=== PATIENT | female | born 1995 | race Caucasian/White ===

== ENCOUNTER → 2016-10-12 | Outpatient (CLI) | payer OTHER ==
[~2016-10-12] MED LIST: PNV OR
== END ==
LOC: M LAB 07:52
PROVIDERS: ATTEND Advanced Practice Midwife
DX: Z34.83 Encounter for supervision of other normal pregnancy, third trimester (principal)

== ENCOUNTER 2016-11-09 09:33 | Outpatient (CLI) | payer OTHER ==
[~2016-11-09] VITALS: Ht 162.6 cm; Wt 84.0 kg
[2016-11-09 09:54] VITALS: BP 127/68
[2016-11-09] MEDS ORDERED: ACETAMINOPHEN 500 MG TAB PO ONE (11:00)
[2016-11-09] MEDS ORDERED: ACETAMINOPHEN 500 MG TAB As Ordered ONE (11:04)
== END 2016-11-09 11:10 | disposition home or self-care (01) ==
LOC: M LDO 09:33
PROVIDERS: ATTEND Specialist
DX: O99.89 Other specified diseases and conditions complicating pregnancy, childbirth and the puerperium (principal); K42.9 Umbilical hernia without obstruction or gangrene; Z3A.30 30 weeks gestation of pregnancy

== ENCOUNTER → 2016-12-25 | Outpatient (REF) | payer OTHER ==
[~2016-12-25] MED LIST changes: +ERYTOIN8 OD; +PREN1TAB11 PO
== END ==
LOC: M LAB REF 13:16
PROVIDERS: ATTEND Advanced Practice Midwife
DX: Z36 Encounter for antenatal screening of mother (principal); Z3A.00 Weeks of gestation of pregnancy not specified

== ENCOUNTER 2016-12-26 05:04 | Emergency (ER) | payer OTHER ==
[~2016-12-26] VITALS: Ht 162.6 cm; Wt 87.5 kg
[~2016-12-26 05:04] MED LIST changes: -ERYTOIN8 OD; -PREN1TAB11 PO
[2016-12-26] MEDS ORDERED: PREN1TAB11 PO (05:28)
[2016-12-26] MEDS ORDERED: TETRACAINE 0.5% OPHTH SOLN 4ML OU ONE (07:15)
[2016-12-26] MEDS ORDERED: FLUORESCEIN OPHTH 1 MG STRIP OU ONE (07:15)
[2016-12-26] MEDS ORDERED: ERYTOIN8 OD (07:34)
[2016-12-26 07:41] VITALS: BP 126/78
[2016-12-26] MEDS ORDERED: ERYTHROMYCIN OPHTH OINT OD ONE (07:45)
== END 2016-12-26 07:47 | disposition home or self-care (01) ==
LOC: M ED 05:47
DX: S05.01XA Injury of conjunctiva and corneal abrasion without foreign body, right eye, initial encounter (principal); H11.31 Conjunctival hemorrhage, right eye; W50.0XXA Accidental hit or strike by another person, initial encounter; Y92.099 Unspecified place in other non-institutional residence as the place of occurrence of the external cause; Y93.89 Activity, other specified; Y99.9 Unspecified external cause status

== ENCOUNTER 2017-01-07 20:21 | Outpatient (CLI) | payer OTHER ==
[~2017-01-07] VITALS: Ht 162.6 cm; Wt 89.0 kg
[~2017-01-07 20:21] MED LIST changes: +ERYTOIN8 OD; +PREN1TAB11 PO
[2017-01-07 20:33] VITALS: BP 133/79
[2017-01-07] MEDS ORDERED: PROMETHAZINE INJ 25 MG/ML VIAL (J2550) IV ONE (22:00)
[2017-01-07] MEDS ORDERED: LACTATED RINGER'S 1000 ML IV ONE (22:00)
[2017-01-07] MEDS ORDERED: BUTORPHANOL 2 MG/ML INJ (J0595) IV ONE (22:00)
[2017-01-08 02:07] VITALS: BP 109/53
[2017-01-08 04:54] VITALS: BP 122/56
== END 2017-01-08 05:55 | disposition home or self-care (01) ==
LOC: M LDO 20:21
PROVIDERS: ATTEND Advanced Practice Midwife
DX: O47.1 False labor at or after 37 completed weeks of gestation (principal); Z3A.38 38 weeks gestation of pregnancy

== ENCOUNTER 2017-01-14 22:56 | Inpatient (IN) | payer OTHER ==
[~2017-01-14] VITALS: Ht 162.6 cm; Wt 90.0 kg
[~2017-01-14 22:56] MED LIST changes: +hydrOXYzine 50 MG TAB PO SCH
[2017-01-14] MEDS ORDERED: BUTORPHANOL 2 MG/ML INJ (J0595) IV PRN (23:30)
[2017-01-14] MEDS ORDERED: LACTATED RINGER'S 1000 ML IV STA (23:30)
[2017-01-14] MEDS ORDERED: PROMETHAZINE INJ 25 MG/ML VIAL (J2550) IV PRN (23:30)
[2017-01-14] MEDS ORDERED: miSOPROStol 50 MCG 1/2 TAB (S0191) PO SCH (23:30)
[2017-01-15] VITALS (29 sets, daily range): BP systolic 110–158; BP diastolic 55–87
--- NOTE | 2017-01-15 00:23 | HPE ---
DATE OF ADMISSION: 01/14/2017 A 21-year-old 3, para 1-0-1-1, estimated date of delivery 01/17/2017, here at 39 weeks 4 days with reports of leakage of fluid on and off since 0630 hours this morning. Denies regular contractions or bleeding. Fetus is active. Last normal menstrual period 04/12/2016 for FRANK of 01/17/2017, sonogram at 8 weeks confirmed her date. Anatomy scan within normal limits with the exception of a possible bilobed placenta. Appropriate care. OBSTETRICAL HISTORY: 2008: Elective termination. 2011: Induction of labor at 39 weeks for preeclampsia, normal spontaneous vaginal , viable female, 7 pounds 3 ounces. ALLERGIES: No known drug allergies. MEDICAL-SURGICAL: History of thyroid nodules FAMILY HISTORY: Autism, diabetes, hypertension and depression. SOCIAL HISTORY: Single. Father of the baby and family supportive. Denies tobacco, alcohol, drugs or abuse. OBJECTIVE: Prepregnancy weight 155, total weight gain 44 pounds. A+, antibody negative, rubella immune, VDRL, hepatitis B, hepatitis C, HIV, gonorrhea and Chlamydia all negative. Quad screen within normal limits. 1-hour glucose 133, 3-hour within normal limits 93, 158, 185 and 121. Group B strep is negative. Vital signs are stable. She is in no apparent distress. Heart rate is regular. Respirations are easy. Abdomen is soft, gravid, longitudinal lie. Rare contractions. heart 145, moderate variability and accelerations. Sterile speculum exam: Positive pooling of clear fluid, positive Nitrazine, positive fern. Sterile vaginal exam: 1 cm, 20% effaced, -3, cephalic. ASSESSMENT: Multiparous at 39+ weeks gestation, premature rupture of membranes, category one tracing. PLAN: Admit, cervical ripening. The patient plans epidural. Anticipate normal spontaneous vaginal .
[2017-01-15 00:39] LABS: MEAN CORPUSCULAR HEMOGLOBIN 27.5 pg (27.0-33.0); MEAN CORPUSCULAR HGB CONC 33.7 g/dl (32.0-36.5); MEAN CORPUSCULAR VOLUME 81.4 fl (80.0-96.0); RED CELL DISTRIBUTION WIDTH 16.4 % (11.5-14.5); WHITE BLOOD COUNT 9.1 K/mm3 (4.0-10.0)
[2017-01-15] MEDS ORDERED: FENTANYL 2MCG/ML ROPIVACAINE 0.2% IN 0.9% NACL 200ML IVBAG As Ordered ONE (04:11)
[2017-01-15] MEDS ORDERED: OXYTOCIN DRIP 30 UNITS in APPROPRIATE DILUENT 1 EA IV SCH (10:31)
[2017-01-15] MEDS ORDERED: RHOGAM 300 MCG (1500 IU) INJ (J2790) IM SCH (10:45)
[2017-01-15] MEDS ORDERED: DOCUSATE SODIUM 100 MG CAP PO PRN (10:45)
[2017-01-15] MEDS ORDERED: MOM 30ML SUSPENSION UDC PO PRN (10:45)
[2017-01-15] MEDS ORDERED: MEASLES,MUMPS,RUBELLA VACCINE INJ (MMR-II) (90707) SC SCH (10:45)
[2017-01-15] MEDS ORDERED: ANUSOL HC CREAM 30GM TOP PRN (10:45)
[2017-01-15] MEDS ORDERED: ACETAMINOPHEN 500 MG TAB PO PRN (10:45)
[2017-01-15] MEDS ORDERED: DIBUCAINE 1% OINTMENT 30GM TOP PRN (10:45)
--- NOTE | 2017-01-15 10:56 | DN ---
DATE: 01/15/2017 TIME OF : 10:14 GENDER: Female APGARS: 9 and 9 WEIGHT: 7 pounds and 13 ounces or 3550 grams ANESTHESIA: Epidural. LACERATIONS: None. ESTIMATED BLOOD LOSS: 300 mL. COUNTS: 5 laparotomy sponges accounted for prior to and after delivery. DELIVERY NOTE: On 01/15/2017, at 10:14, Mrs. Huitron is a 21-year-old, 3, now para 2, who had spontaneous vaginal delivery of a live born female , Apgars 9 and 9, weight 7 pounds and 13 ounces or 3550 grams. Head was delivered left occiput anterior (BIMAL) over an intact perineum. There was a nuchal cord which was manually reduced, followed by delivery of anterior and posterior shoulders and corpus. The infant was handed to mom with a good cry. The cord was clamped times two. It was cut by the father of the baby under my direction. Cord blood was then obtained. It was drained and delivered grossly intact. A premixed bag of 500 mL of normal saline with 30 units of Pitocin was then bolused along with uterus massage until the uterus was firm. On inspection, the cervix, vagina and perineum were grossly intact and hemostatic. Mom and baby to recovery in stable condition. The couple has decided to name their daughter, Denisse.
[2017-01-15] MEDS ORDERED: OXYTOCIN INJ 10 UNITS/ML VIAL (J2590) IV STA (11:50)
[2017-01-15] MEDS: IBUPROFEN 800 MG TAB PO PRN ×2 (14:18→20:05)
[2017-01-16 05:40] VITALS: BP 124/63
[2017-01-16] MEDS: PRENATAL VITAMIN TAB PO SCH (09:52)
[2017-01-16] MEDS: IBUPROFEN 800 MG TAB PO PRN (17:49)
[2017-01-16 18:06] VITALS: BP 119/67
[2017-01-17 05:34] VITALS: BP 136/71
[2017-01-17] MEDS ORDERED: ACET50TA PO (09:24)
[2017-01-17] MEDS ORDERED: COLA100C3 PO (09:25)
[2017-01-17] MEDS ORDERED: IBUP-1114 PO (09:25)
[2017-01-17] MEDS ORDERED: MOM30SS PO (09:27)
[2017-01-17] MEDS: PRENATAL VITAMIN TAB PO SCH (09:37)
[2017-01-17] MEDS: IBUPROFEN 800 MG TAB PO PRN (09:37)
== END 2017-01-17 14:00 | disposition home or self-care (01) | DRG 560 ==
LOC: M LDO 22:56 → M LDI 23:29 → M OBS 01-15 17:29
PROVIDERS: ADMIT Advanced Practice Midwife; ATTEND Obstetrics & Gynecology
PROC: 10E0XZZ Delivery of Products of Conception, External Approach (ICD-10-PCS; principal; 2017-01-15)
DX: O42.02 Full-term premature rupture of membranes, onset of labor within 24 hours of rupture (principal); O69.81X0 Labor and delivery complicated by cord around neck, without compression, not applicable or unspecified; Z3A.39 39 weeks gestation of pregnancy; Z37.0 Single live birth

== ENCOUNTER 2017-05-18 13:37 | Emergency (ER) | payer OTHER ==
[~2017-05-18] VITALS: Ht 162.6 cm; Wt 79.1 kg
[~2017-05-18 13:37] MED LIST changes: +ACET50TA PO; +COLA100C5 PO; +IBUP-1114 PO; +MOM30SS PO; -hydrOXYzine 50 MG TAB PO SCH
[2017-05-18] MEDS ORDERED: nuva ring (13:45)
[2017-05-18] MEDS ORDERED: NS 1,000 ML IV ONE (14:30)
[2017-05-18] MEDS ORDERED: ONDANSETRON 4MG/2ML VIAL (J2405) IV ONE (14:30)
[2017-05-18] MEDS ORDERED: MORPHINE 4 MG/ML 1ML SYRINGE IV ONE (14:30)
[2017-05-18 15:19] LABS: BASO % 0.3 % (0.0-1.0); EOS # 0.1 K/mm3 (0.0-0.50); EOS % 1.2 % (0.0-3.0); LARGE UNSTAINED CELL # 0.1 K/mm3 (0.0-0.4); LARGE UNSTAINED CELL % 1.2 % (0.0-4.0); LYMPH # 1.9 K/mm3 (1.5-6.5); LYMPH % 32.3 % (24.0-44.0); MEAN CORPUSCULAR HEMOGLOBIN 28.9 pg (27.0-33.0); MEAN CORPUSCULAR HGB CONC 35.2 g/dl (32.0-36.5); MEAN CORPUSCULAR VOLUME 82.1 fl (80.0-96.0); MONO # 0.2 K/mm3 (0.0-0.8); MONO % 3.7 % (0.0-5.0); NEUTROPHILS # 3.4 K/mm3 (1.8-7.7); NEUTROPHILS % 61.3 % (36.0-66.0); PLATELET COUNT, AUTOMATED 158 k/mm3 (150-450); RED CELL DISTRIBUTION WIDTH 13.2 % (11.5-14.5); WHITE BLOOD COUNT 5.5 K/mm3 (4.0-10.0)
[2017-05-18 15:32] LABS: ALBUMIN 3.9 GM/DL (3.2-5.2); ALBUMIN/GLOBULIN RATIO 1.22 (1.00-1.93); ALKALINE PHOSPHATASE 76 U/L (45-117); ALT/SGPT 22 U/L (12-78); AMYLASE 34 U/L (25-115); ANION GAP 9 MEQ/L (8-16); AST/SGOT 18 U/L (15-37); BILIRUBIN,DIRECT < 0.1 MG/DL (0.0-0.2); BILIRUBIN,TOTAL 0.3 MG/DL (0.2-1.0); BLOOD UREA NITROGEN 12 MG/DL (7-18); CALCIUM LEVEL 9.1 MG/DL (8.5-10.1); CARBON DIOXIDE LEVEL 25 MEQ/L (21-32); CHLORIDE LEVEL 107 MEQ/L (98-107); GLOMERULAR FILTRATION RATE > 60.0 (>60); GLUCOSE, FASTING 81 MG/DL (70-105); POTASSIUM SERUM 3.6 MEQ/L (3.5-5.1); SODIUM LEVEL 141 MEQ/L (136-145); TOTAL PROTEIN 7.1 GM/DL (6.4-8.2)
[2017-05-18] MEDS ORDERED: ISOVUE-370 76% 100ML VIAL (Q9967) As Ordered ONE (15:36)
--- NOTE | 2017-05-18 16:15 | REP ---
CT of the abdomen and pelvis with IV contrast, without bowel contrast: Comparisons 06/24/2009. The visualized lung dillard are unremarkable. The hepatic parenchyma, gallbladder, pancreas, spleen, adrenals, kidneys and abdominal aorta are unremarkable. There is no bowel distension. No inflammatory changes in the mesentery. No ascites. Pelvis: The appendix is nondistended. There is no appendiceal inflammation or abscess. There are appendicoliths and the appendiceal tip. The uterus and adnexa are unremarkable. The pelvic bowel loops are unremarkable. Impression: The gallbladder is unremarkable. The appendix has a normal appearance except for an appendicolith in the appendix tip. There is no appendix inflammation. Uterus and adnexa are unremarkable. No bowel distension or obstruction. No ascites. No adenopathy or mass. Otherwise, negative CT study of the abdomen and pelvis. Signed by Adam Paul MD 05/18/2017 04:07 P
[2017-05-18 16:41] VITALS: BP 116/71
[2017-08-11] MEDS ORDERED: NORCOTAB PO (11:08)
== END 2017-05-18 16:47 | disposition home or self-care (01) ==
LOC: M ED 13:37
DX: R10.9 Unspecified abdominal pain (principal); R11.10 Vomiting, unspecified; K42.9 Umbilical hernia without obstruction or gangrene; F41.9 Anxiety disorder, unspecified; F32.9 Major depressive disorder, single episode, unspecified; Z79.3 Long term (current) use of hormonal contraceptives
CPT/HCPCS: 74177; 80048; 80076; 81001; 81025; 82150; 83605; 83690; 85025; 96374; 96375; 99283; J2405; Q9967

== ENCOUNTER 2017-06-29 15:59 | Emergency (ER) | payer OTHER, SELFPAY ==
[~2017-06-29] VITALS: Ht 162.6 cm; Wt 79.5 kg
[~2017-06-29 15:59] MED LIST changes: +nuva ring
[2017-06-29] MEDS ORDERED: IPRATROPIUM 0.5MG/ALBUTEROL 2.5MG INH SOL UD 3ML (DUONEB)(J7620) NEB ONE (18:30)
[2017-06-29] MEDS ORDERED: MUCI600T37 PO (20:13)
[2017-06-29] MEDS ORDERED: SUDA30TA PO (20:13)
[2017-06-29] MEDS ORDERED: IBUP-1022 PO (20:13)
[2017-06-29] MEDS ORDERED: FLON1SPR (20:13)
[2017-06-29] MEDS ORDERED: ZYRT10TA2 PO (20:13)
[2017-06-29] MEDS ORDERED: ALBUTEROL 90 MCG/ACT 8GM HFA INHALER INH ONE (20:15)
[2017-06-29 20:28] VITALS: BP 122/56
--- NOTE | 2017-06-30 00:42 | REP ---
PA and lateral chest: Comparison is 10/16/2015. The lung dillard are clear. The cardiac size is normal The milton, mediastinum, and bony thorax are unremarkable. Impression: Negative PA and lateral chest. There is no interval change. Signed by Adam Paul MD 06/29/2017 06:42 P
[2017-08-11] MEDS ORDERED: NORCOTAB PO (11:08)
== END 2017-06-29 20:32 | disposition home or self-care (01) ==
LOC: M ED 15:59
DX: H65.03 Acute serous otitis media, bilateral (principal); J06.9 Acute upper respiratory infection, unspecified; F41.9 Anxiety disorder, unspecified; R51 Headache; Z87.891 Personal history of nicotine dependence

== ENCOUNTER → 2017-11-19 | Outpatient (REF) | payer OTHER | LOC: M LAB REF 12:12 | DX: J02.9 Acute pharyngitis, unspecified (principal) ==

== ENCOUNTER 2017-11-22 09:20 | Emergency (ER) | payer OTHER ==
[2017-11-22] MEDS: ONDANSETRON 4MG/2ML VIAL (J2405) IV (10:00)
[2017-11-22] MEDS: GI COCKTAIL 50ML BTL(HYOSCYAMINE/MAALOX/LIDOCAINE VISCOUS)(1:3:1) PO (10:00)
[2017-11-22] MEDS: NS 1,000 ML IV (10:00)
[2017-11-22 10:22] LABS: BASO % 0.1 % (0.0-1.0); EOS % 0.3 % (0.0-3.0); HEMATOCRIT 41.4 % (36.0-47.0); IMMATURE GRANULOCYTE % 0.3 % (0-3.0); LYMPH # 0.6 10^3/uL (1.5-6.5); LYMPH % 7.9 % (24.0-44.0); MEAN CORPUSCULAR HEMOGLOBIN 29.2 pg (27.0-33.0); MEAN CORPUSCULAR HGB CONC 33.8 g/dl (32.0-36.5); MEAN CORPUSCULAR VOLUME 86.3 fl (80.0-96.0); MONO # 0.4 10^3/uL (0.0-0.8); MONO % 5.2 % (0.0-5.0); NEUTROPHILS # 6.4 10^3/uL (1.8-7.7); NEUTROPHILS % 86.2 % (36.0-66.0); PLATELET COUNT, AUTOMATED 158 10^3/uL (150-450); RED CELL DISTRIBUTION WIDTH 11.9 % (11.5-14.5); WHITE BLOOD COUNT 7.5 10^3/uL (4.0-10.0)
[2017-11-22 11:23] LABS: ALBUMIN 3.6 GM/DL (3.2-5.2); ALBUMIN/GLOBULIN RATIO 1.06 (1.00-1.93); ALKALINE PHOSPHATASE 60 U/L (45-117); ALT/SGPT 22 U/L (12-78); ANION GAP 6 MEQ/L (8-16); AST/SGOT 12 U/L (7-37); BILIRUBIN,DIRECT < 0.1 MG/DL (0.0-0.2); BILIRUBIN,TOTAL 0.4 MG/DL (0.2-1.0); BLOOD UREA NITROGEN 12 MG/DL (7-18); CALCIUM LEVEL 8.2 MG/DL (8.5-10.1); CARBON DIOXIDE LEVEL 28 MEQ/L (21-32); CHLORIDE LEVEL 106 MEQ/L (98-107); CREATININE FOR GFR 0.44 MG/DL (0.55-1.30); GLOMERULAR FILTRATION RATE > 60.0 (>60); GLUCOSE, FASTING 110 MG/DL (70-100); LIPASE 95 U/L (73-393); POTASSIUM SERUM 3.9 MEQ/L (3.5-5.1); SODIUM LEVEL 140 MEQ/L (136-145)
== END 2017-11-22 12:00 | disposition home or self-care (01) ==
LOC: M ED 09:20
DX: K29.00 Acute gastritis without bleeding (principal)
CPT/HCPCS: J2405

== ENCOUNTER → 2017-11-29 | Outpatient (REF) | payer OTHER, MEDICAID ==
[2017-11-29 19:46] LABS: BASO % 0.6 % (0.0-1.0); EOS # 0.1 10^3/uL (0.0-0.50); HEMATOCRIT 40.3 % (36.0-47.0); HEMOGLOBIN 13.3 g/dl (12.0-16.0); IMMATURE GRANULOCYTE % 0.7 % (0-3.0); LYMPH # 1.9 10^3/uL (1.5-6.5); LYMPH % 26.1 % (24.0-44.0); MEAN CORPUSCULAR HEMOGLOBIN 28.5 pg (27.0-33.0); MEAN CORPUSCULAR VOLUME 86.3 fl (80.0-96.0); MONO # 0.4 10^3/uL (0.0-0.8); MONO % 5.3 % (0.0-5.0); NEUTROPHILS # 4.7 10^3/uL (1.8-7.7); NEUTROPHILS % 66.3 % (36.0-66.0); PLATELET COUNT, AUTOMATED 255 10^3/uL (150-450); RED BLOOD COUNT 4.67 10^6/uL (4.00-5.40); RED CELL DISTRIBUTION WIDTH 11.8 % (11.5-14.5); WHITE BLOOD COUNT 7.1 10^3/uL (4.0-10.0)
[2017-11-29 20:07] LABS: TOTAL 25(OH) VITAMIN D 10.3 NG/ML (30.0-100.0)
[2017-11-29 20:09] LABS: ALBUMIN/GLOBULIN RATIO 1.18 (1.00-1.93); ALKALINE PHOSPHATASE 69 U/L (45-117); ALT/SGPT 26 U/L (12-78); ANION GAP 5 MEQ/L (8-16); AST/SGOT 10 U/L (7-37); BILIRUBIN,TOTAL 0.2 MG/DL (0.2-1.0); BLOOD UREA NITROGEN 14 MG/DL (7-18); CALCIUM LEVEL 8.8 MG/DL (8.5-10.1); CARBON DIOXIDE LEVEL 30 MEQ/L (21-32); CHLORIDE LEVEL 106 MEQ/L (98-107); CREATININE FOR GFR 0.54 MG/DL (0.55-1.30); FREE T4 1.04 NG/DL (0.76-1.46); GLOMERULAR FILTRATION RATE > 60.0 (>60); GLUCOSE, FASTING 96 MG/DL (70-100); POTASSIUM SERUM 4.1 MEQ/L (3.5-5.1); SODIUM LEVEL 141 MEQ/L (136-145); TOTAL PROTEIN 7.4 GM/DL (6.4-8.2)
== END ==
LOC: M LAB REF 18:24
DX: Z00.00 Encounter for general adult medical examination without abnormal findings (principal); E04.1 Nontoxic single thyroid nodule
CPT/HCPCS: 84443

== ENCOUNTER → 2017-11-29 | Outpatient (REF) | payer OTHER ==
[2017-11-29 21:36] LABS: CHLAMYDIA DNA AMPLIFICATION NEGATIVE (NEGATIVE); GC DNA AMPLIFICATION NEGATIVE (NEGATIVE)
== END ==
LOC: M LAB REF 17:02
DX: Z00.00 Encounter for general adult medical examination without abnormal findings (principal)

== ENCOUNTER → 2017-12-02 | Outpatient (CLI) | payer OTHER | LOC: M RAD 13:07 | DX: E04.1 Nontoxic single thyroid nodule (principal) | CPT/HCPCS: 76536 ==

== ENCOUNTER → 2017-12-04 | Outpatient (CLI) | payer OTHER ==
[2017-12-04 18:54] LABS: CONTROL LINE MONO RF C INT CTR LINE PRESENT; MONO REFLEX EBV COMP NEGATIVE (NEGATIVE)
[2017-12-04 18:59] LABS: BASO % 0.2 % (0.0-1.0); EOS # 0.1 10^3/uL (0.0-0.50); EOS % 0.7 % (0.0-3.0); HEMATOCRIT 39.5 % (36.0-47.0); HEMOGLOBIN 12.9 g/dl (12.0-16.0); IMMATURE GRANULOCYTE % 0.4 % (0-3.0); LYMPH # 1.9 10^3/uL (1.5-6.5); LYMPH % 18.6 % (24.0-44.0); MEAN CORPUSCULAR HEMOGLOBIN 28.7 pg (27.0-33.0); MEAN CORPUSCULAR HGB CONC 32.7 g/dl (32.0-36.5); MEAN CORPUSCULAR VOLUME 87.8 fl (80.0-96.0); MONO # 0.5 10^3/uL (0.0-0.8); NEUTROPHILS # 7.8 10^3/uL (1.8-7.7); NEUTROPHILS % 75.1 % (36.0-66.0); PLATELET COUNT, AUTOMATED 228 10^3/uL (150-450); RED CELL DISTRIBUTION WIDTH 11.8 % (11.5-14.5); WHITE BLOOD COUNT 10.4 10^3/uL (4.0-10.0)
== END ==
LOC: M ADAMS 08:50
DX: J02.9 Acute pharyngitis, unspecified (principal)
CPT/HCPCS: 86665

== ENCOUNTER → 2018-02-03 | Outpatient (REF) | payer OTHER ==
[2018-02-03 19:39] LABS: BASO % 0.3 % (0.0-1.0); EOS # 0.1 10^3/uL (0.0-0.50); EOS % 0.8 % (0.0-3.0); HEMOGLOBIN 13.6 g/dl (12.0-15.5); IMMATURE GRANULOCYTE % 0.3 % (0-3.0); LYMPH # 1.9 10^3/uL (1.5-6.5); LYMPH % 23.7 % (24.0-44.0); MEAN CORPUSCULAR HEMOGLOBIN 29.6 pg (27.0-33.0); MONO # 0.3 10^3/uL (0.0-0.8); MONO % 3.8 % (0.0-5.0); NEUTROPHILS # 5.6 10^3/uL (1.8-7.7); NEUTROPHILS % 71.1 % (36.0-66.0); PLATELET COUNT, AUTOMATED 187 10^3/uL (150-450); WHITE BLOOD COUNT 7.9 10^3/uL (4.0-10.0)
[2018-02-03 21:39] LABS: CHLAMYDIA DNA AMPLIFICATION NEGATIVE (NEGATIVE); GC DNA AMPLIFICATION NEGATIVE (NEGATIVE)
[2018-02-04 11:55] LABS: RUBELLA IgG QUALITATIVE IMMUNE (IMMUNE)
[2018-02-04 12:00] LABS: HBsAg Prenatal NEGATIVE (NEGATIVE)
[2018-02-04 12:26] LABS: HIV 1&2 SCREEN CENTAUR NEGATIVE (NEGATIVE)
== END ==
LOC: M LAB REF 19:29
DX: Z34.81 Encounter for supervision of other normal pregnancy, first trimester (principal); Z3A.09 9 weeks gestation of pregnancy

== ENCOUNTER → 2018-04-04 | Outpatient (CLI) | payer OTHER | LOC: M RAD 16:30 | DX: Z34.82 Encounter for supervision of other normal pregnancy, second trimester (principal) | CPT/HCPCS: 76811 ==

== ENCOUNTER → 2018-08-09 | Outpatient (REF) | payer OTHER | LOC: M LAB REF 17:09 | DX: Z34.83 Encounter for supervision of other normal pregnancy, third trimester (principal) ==

== ENCOUNTER 2018-08-25 07:37 | Inpatient (IN) | payer OTHER ==
[2018-08-25] MEDS: LACTATED RINGER'S 1000 ML IV (10:43)
[2018-08-25 11:09] LABS: HEMATOCRIT 34.4 % (36.0-47.0); HEMOGLOBIN 11.1 g/dl (12.0-15.5); MEAN CORPUSCULAR HEMOGLOBIN 27.3 pg (27.0-33.0); MEAN CORPUSCULAR HGB CONC 32.3 g/dl (32.0-36.5); MEAN CORPUSCULAR VOLUME 84.5 fl (80.0-96.0); PLATELET COUNT, AUTOMATED 109 10^3/uL (150-450); RED BLOOD COUNT 4.07 10^6/uL (4.00-5.40); RED CELL DISTRIBUTION WIDTH 14.1 % (11.5-14.5); WHITE BLOOD COUNT 7.9 10^3/uL (4.0-10.0)
[2018-08-25] MEDS: OXYTOCIN DRIP 30 UNITS in APPROPRIATE DILUENT 1 EA IV ×2 (13:37→20:18)
[2018-08-25] MEDS ORDERED: FENTANYL 2MCG/ML ROPIVACAINE 0.2% IN 0.9% NACL 200ML IVBAG As Ordered (14:16)
[2018-08-25] MEDS: FENTANYL/ROPIVACAINE/NACL BAG 200 ML EPIDURAL (14:50)
[2018-08-25] MEDS: LR 1,000 ML IV ×3 (15:50→22:45)
[2018-08-25] MEDS ORDERED: LACTATED RINGER'S 1000 ML IV (16:15)
[2018-08-25] MEDS ORDERED: NALOXONE INJ 0.4 MG/1 ML VIAL (J2310) IV ×3 (16:15→19:00)
[2018-08-25] MEDS ORDERED: EPIDURAL/PCA KEYS XX (16:15)
[2018-08-25] MEDS ORDERED: ePHEDrine SULFATE 25 MG/5 ML(5MG/ML) SYRINGE IV (16:15)
[2018-08-25] MEDS ORDERED: ONDANSETRON 4MG/2ML VIAL (J2405) IV ×4 (16:15→20:45)
[2018-08-25] MEDS ORDERED: diphenhydrAMINE INJ 50MG/ML VIAL (J1200) IV (16:15)
[2018-08-25] MEDS ORDERED: REFRIGERATOR IV KEYS XX (16:15)
[2018-08-25] MEDS ORDERED: EPIDURAL COMMENT XX (16:15)
[2018-08-25] MEDS: BICITRA 30ML SOLN UDC PO (16:30)
[2018-08-25] MEDS ORDERED: fentaNYL 100 MCG/2 ML INJECTION (J3010) As Ordered ×2 (18:50→19:10)
[2018-08-25] MEDS ORDERED: MORPHINE PRES-FREE INJ 10 MG/10 ML VIAL (J2274) As Ordered (18:50)
[2018-08-25] MEDS ORDERED: LIDOCAINE PRES-FREE 2% 10ML AMP As Ordered (18:50)
[2018-08-25] MEDS ORDERED: KETOROLAC 60 MG/2 ML VIAL (J1885) As Ordered (18:50)
[2018-08-25] MEDS ORDERED: OXYTOCIN INJ 10 UNITS/ML VIAL (J2590) As Ordered ×4 (18:50)
[2018-08-25] MEDS ORDERED: ONDANSETRON 4MG/2ML VIAL (J2405) As Ordered (18:50)
[2018-08-25] MEDS ORDERED: METOCLOPRAMIDE INJ 10MG/2ML VIAL (J2765) IV (19:00)
[2018-08-25] MEDS ORDERED: dexameTHASONE 4 MG/ML 1ML VIAL (J1100) As Ordered (19:23)
[2018-08-25 19:27] LABS: CORD GAS ABE V -2.5; CORD GAS HCO3 V 21.7 MEQ/L; CORD GAS O2 SAT V 73.1 %; CORD GAS PCO2 V 36.2 mmHg; CORD GAS PH V 7.395 UNITS; CORD GAS PO2 V 31.4 mmHg; CORD GAS SBC V 21.7 MEQ/L; CORD GAS TCO2 V 22.8 MEQ/L
[2018-08-25] MEDS ORDERED: PROMETHAZINE 25 MG TAB PO (20:30)
[2018-08-25] MEDS ORDERED: OXYTOCIN 30 UNITS IN 0.9% NaCl 500ML IV BAG (J2590) As Ordered (20:30)
[2018-08-25] MEDS ORDERED: RHOGAM 300 MCG (1500 IU) INJ (J2790) IM (20:30)
[2018-08-25] MEDS ORDERED: fentaNYL 100 MCG/2 ML INJECTION (J3010) IV (20:45)
[2018-08-25] MEDS: DOCUSATE SODIUM 100 MG CAP PO (21:00)
[2018-08-26] MEDS: KETOROLAC 30 MG/ML VIAL (J1885) IV ×3 (01:06→12:54)
[2018-08-26] MEDS: LR 1,000 ML IV (06:24)
[2018-08-26 07:07] LABS: HEMATOCRIT 27.9 % (36.0-47.0); MEAN CORPUSCULAR HEMOGLOBIN 27.1 pg (27.0-33.0); MEAN CORPUSCULAR HGB CONC 31.9 g/dl (32.0-36.5); MEAN CORPUSCULAR VOLUME 84.8 fl (80.0-96.0); PLATELET COUNT, AUTOMATED 109 10^3/uL (150-450); RED BLOOD COUNT 3.29 10^6/uL (4.00-5.40); RED CELL DISTRIBUTION WIDTH 14.2 % (11.5-14.5); WHITE BLOOD COUNT 11.4 10^3/uL (4.0-10.0)
[2018-08-26 07:19] LABS: HEMOGLOBIN 8.9 g/dl (12.0-15.5)
[2018-08-26] MEDS: PRENATAL VITAMINS CHEWABLE TABLET PO (08:10)
[2018-08-26] MEDS: NALBUPHINE HCL 10 MG/ML AMP (J2300) IV (08:10)
[2018-08-26] MEDS: DOCUSATE SODIUM 100 MG CAP PO ×2 (08:10→21:27)
[2018-08-26] MEDS: INFLUENZA QUADRIVALENT PF VACCINE 0.5ML SYRINGE (90686) IM (09:00)
[2018-08-26] MEDS: ADACEL/BOOSTRIX VACCINE (DIPHTH/PERTUSS/ACELL/TETANUS)0.5ML SYR (90715) IM (11:39)
[2018-08-26] MEDS: PERCOCET 5MG/325MG TAB PO ×2 (15:50→19:58)
[2018-08-26] MEDS: IBUPROFEN 800 MG TAB PO (21:27)
[2018-08-27] MEDS: PERCOCET 5MG/325MG TAB PO ×2 (02:14→09:42)
[2018-08-27] MEDS: IBUPROFEN 800 MG TAB PO (05:54)
[2018-08-27] MEDS: PRENATAL VITAMINS CHEWABLE TABLET PO (08:42)
[2018-08-27] MEDS: DOCUSATE SODIUM 100 MG CAP PO (08:42)
== END 2018-08-27 10:00 | disposition home or self-care (01) | DRG 540 ==
LOC: M LDI 07:37 → M OBS 21:31
PROVIDERS: Obstetrics & Gynecology
PROC: 10D00Z1 Extraction of Products of Conception, Low, Open Approach (ICD-10-PCS; principal; 2018-08-25 18:30)
PROC: 0UB70ZZ Excision of Bilateral Fallopian Tubes, Open Approach (ICD-10-PCS; 2018-08-25 18:30)
PROC: 3E033VJ Introduction of Other Hormone into Peripheral Vein, Percutaneous Approach (ICD-10-PCS; 2018-08-25 18:30)
DX: O32.2XX0 Maternal care for transverse and oblique lie, not applicable or unspecified (principal); Z3A.39 39 weeks gestation of pregnancy; Z37.0 Single live birth; Z30.2 Encounter for sterilization

== ENCOUNTER → 2018-11-17 | Outpatient (REF) | payer OTHER ==
[~2018-11-17] MED LIST changes: -ACET50TA PO; +AMOX PO; +FLON1SPR; +IBUP-1022 PO; +IBUP1TAB7 PO; +MAPA500T2 PO; +MUCI600T37 PO; +NORCOTAB PO; +PERCOCET PO; +PRENTAB9 PO; +SUDA30TA PO; +ZOFR4TAB14 PO; +ZOFR4TAB14 SL; +ZYRT10CA5 PO
== END ==
LOC: M LAB REF 10:08
PROVIDERS: ATTEND Physician Assistant
DX: J06.9 Acute upper respiratory infection, unspecified (principal)

== ENCOUNTER → 2020-09-20 | Outpatient (CLI) | payer OTHER, SELFPAY ==
[~2020-09-20] MED LIST changes: +HYDR-3715 PO; -NORCOTAB PO
== END ==
LOC: M LABSMTC 11:27
PROVIDERS: ATTEND Family Medicine
DX: Z20.828 Contact with and (suspected) exposure to other viral communicable diseases (principal)

== ENCOUNTER 2022-06-14 22:39 | Emergency (ER) | payer OTHER, SELFPAY ==
[~2022-06-14] VITALS: Ht 162.6 cm; Wt 84.1 kg
[2022-06-14] MEDS ORDERED: ZOLO50TA PO (23:18)
[2022-06-15] MEDS ORDERED: AMOXICILLIN 500 MG CAP PO ONE (03:30)
[2022-06-15] MEDS ORDERED: AMOX500C PO (03:33)
[2022-06-15 03:40] VITALS: BP 135/85
== END 2022-06-15 03:42 | disposition home or self-care (01) ==
LOC: M ED 22:39
DX: H66.91 Otitis media, unspecified, right ear (principal); F32.A Depression, unspecified; Z79.899 Other long term (current) drug therapy

== ENCOUNTER 2023-12-15 06:54 | Emergency (ER) | payer SELFPAY ==
[~2023-12-15] VITALS: Ht 162.6 cm; Wt 90.1 kg
[~2023-12-15 06:54] MED LIST changes: +AMOX500C PO; +ZOLO50TA PO
[2023-12-15] MEDS: NS 1,000 ML IV ONE (10:48)
[2023-12-15 11:05] LABS: BASO % 0.4 % (0.0-1.0); EOS % 0.2 % (0.0-3.0); HEMOGLOBIN 13.9 g/dl (12.0-15.5); LYMPH % 25.1 % (24.0-44.0); MEAN CORPUSCULAR HEMOGLOBIN 29.3 pg (27.0-33.0); MEAN CORPUSCULAR HGB CONC 33.9 g/dl (32.0-36.5); MEAN CORPUSCULAR VOLUME 86.5 fl (80.0-96.0); MONO # 0.3 10^3/uL (0.0-0.8); MONO % 4.1 % (2.0-8.0); NEUTROPHILS # 5.7 10^3/uL (1.5-8.5); NEUTROPHILS % 70.1 % (36.0-66.0); PLATELET COUNT, AUTOMATED 194 10^3/uL (150-450); RED BLOOD COUNT 4.74 10^6/uL (4.00-5.40); WHITE BLOOD COUNT 8.1 10^3/uL (4.0-10.0)
[2023-12-15 11:33] LABS: C REACTIVE PROTEIN QUANTITATIV < 0.40 MG/DL (<1.0); LIPASE 39 U/L (12-53)
[2023-12-15 11:35] LABS: ALBUMIN 4.8 G/DL (3.2-5.2); ALKALINE PHOSPHATASE 61 U/L (46-116); ALT/SGPT 19 U/L (7.0-40); AST/SGOT 15 U/L (<34); BILIRUBIN,DIRECT 0.1 MG/DL (<0.4); BILIRUBIN,TOTAL 0.5 MG/DL (0.3-1.2); BLOOD UREA NITROGEN 12 MG/DL (9-23); CALCIUM LEVEL 8.9 MG/DL (8.5-10.1); CARBON DIOXIDE LEVEL 30 MMOL/L (20-31); CHLORIDE LEVEL 102 MMOL/L (98-107); CREATININE FOR GFR 0.65 MG/DL (0.55-1.30); GLOMERULAR FILTRATION RATE > 60.0 (>60); GLUCOSE, FASTING 92 MG/DL (60-100); POTASSIUM SERUM 3.9 MMOL/L (3.5-5.1); SODIUM LEVEL 137 MMOL/L (136-145); TOTAL PROTEIN 7.4 G/DL (5.7-8.2)
[2023-12-15] MEDS ORDERED: ONDA4TAB6 PO (11:50)
[2023-12-15] MEDS: METOCLOPRAMIDE INJ 10MG/2ML VIAL IV ONE (12:42)
[2023-12-15] MEDS: KETOROLAC 30 MG/ML 1ML VIAL IV ONE (12:43)
[2023-12-15] MEDS ORDERED: REGL10TA6 PO (13:18)
[2023-12-15 13:23] VITALS: BP 130/87; TEMP 98.7; O2SAT 96
== END 2023-12-15 13:33 | disposition home or self-care (01) ==
LOC: M ED 06:54
DX: R11.10 Vomiting, unspecified (principal)
CPT/HCPCS: 80048; 80076; 83605; 83690; 85025; 86140; 87486; 87581; 87633; 87798; 96361; 96374; 96375; 99284; J1885; J2765

== ENCOUNTER → 2024-05-25 | Outpatient (REF) | payer SELFPAY, MEDICARE ==
[~2024-05-25] MED LIST changes: +ONDA-282 PO; +REGL10TA6 PO
[2024-05-25 15:06] LABS: Trichomonas vaginalis (AMP) NOT DETECTED (NEGATIVE)
[2024-05-25 15:30] LABS: GC DNA AMPLIFICATION NEGATIVE (NEGATIVE)
[2024-05-30 12:26] LABS: HPV APTIMA Not Detected (Not Detected)
== END ==
LOC: M SFHCWAGY 13:04
PROVIDERS: ATTEND Nurse Practitioner Family
DX: Z12.4 Encounter for screening for malignant neoplasm of cervix (principal); N73.9 Female pelvic inflammatory disease, unspecified; Z11.3 Encounter for screening for infections with a predominantly sexual mode of transmission; Z11.51 Encounter for screening for human papillomavirus (HPV)
CPT/HCPCS: 87070; 87624; 87661; 87810; 87850; G0123

== ENCOUNTER → 2024-07-14 | Outpatient (REF) | payer MEDICARE ==
[2024-07-14 14:13] LABS: BASO % 0.4 % (0.0-1.0); EOS # 0.1 10^3/uL (0.0-0.5); EOS % 1.9 % (0.0-3.0); HEMATOCRIT 42.2 % (36.0-47.0); HEMOGLOBIN 14.3 g/dl (12.0-15.5); HEMOGLOBIN A1c 5.4 % (4.0-6.0); LYMPH # 1.8 10^3/uL (1.5-5.0); LYMPH % 34.1 % (24.0-44.0); MEAN CORPUSCULAR HEMOGLOBIN 29.4 pg (27.0-33.0); MEAN CORPUSCULAR HGB CONC 33.9 g/dl (32.0-36.5); MEAN CORPUSCULAR VOLUME 86.7 fl (80.0-96.0); MONO # 0.3 10^3/uL (0.0-0.8); MONO % 6.4 % (2.0-8.0); NEUTROPHILS % 56.4 % (36.0-66.0); RED BLOOD COUNT 4.87 10^6/uL (4.00-5.40); WHITE BLOOD COUNT 5.3 10^3/uL (4.0-10.0)
[2024-07-14 14:27] LABS: ALBUMIN 4.3 G/DL (3.2-5.2); ALKALINE PHOSPHATASE 63 U/L (46-116); ALT/SGPT 44 U/L (7.0-40); AST/SGOT 33 U/L (<34); BILIRUBIN,TOTAL 0.3 MG/DL (0.3-1.2); BLOOD UREA NITROGEN 13 MG/DL (9-23); CALCIUM LEVEL 9.8 MG/DL (8.5-10.1); CARBON DIOXIDE LEVEL 28 MMOL/L (20-31); CHLORIDE LEVEL 103 MMOL/L (98-107); CHOLESTEROL LEVEL 214 MG/DL (<200); CHOLESTEROL RISK RATIO 6.54 (<5); CREATININE FOR GFR 0.58 MG/DL (0.55-1.30); GLOMERULAR FILTRATION RATE > 60.0 (>60); GLUCOSE, FASTING 129 MG/DL (60-100); HDL CHOLESTEROL 32.7 MG/DL (>40); LDL CHOLESTEROL 122.7 MG/DL (<100); MAGNESIUM LEVEL 2.1 MG/DL (1.8-2.4); NON-HDL-C 181.3 MG/DL; POTASSIUM SERUM 4.6 MMOL/L (3.5-5.1); SODIUM LEVEL 136 MMOL/L (136-145); TOTAL PROTEIN 7.2 G/DL (5.7-8.2); TRIGLYCERIDES LEVEL 293 MG/DL (<150)
[2024-07-14 14:28] LABS: THYROID STIMULATING HORMONE 6.346 uIU/ML (0.55-4.78); TOTAL 25(OH) VITAMIN D 22.8 NG/ML (20.0-100.0)
== END ==
LOC: M LAB REF 12:48
PROVIDERS: ATTEND Nurse Practitioner Family
DX: E66.3 Overweight (principal); E55.9 Vitamin D deficiency, unspecified; Z79.899 Other long term (current) drug therapy

== ENCOUNTER → 2024-08-10 | Outpatient (REF) | payer MEDICARE ==
[2024-08-10 12:21] LABS: BASO % 0.4 % (0.0-1.0); EOS # 0.1 10^3/uL (0.0-0.5); EOS % 1.3 % (0.0-3.0); HEMATOCRIT 39.8 % (36.0-47.0); HEMOGLOBIN 13.1 g/dl (12.0-15.5); LYMPH # 0.9 10^3/uL (1.5-5.0); LYMPH % 20.7 % (24.0-44.0); MEAN CORPUSCULAR HEMOGLOBIN 29.1 pg (27.0-33.0); MEAN CORPUSCULAR HGB CONC 32.9 g/dl (32.0-36.5); MEAN CORPUSCULAR VOLUME 88.4 fl (80.0-96.0); MONO # 0.4 10^3/uL (0.0-0.8); MONO % 8.3 % (2.0-8.0); NEUTROPHILS # 3.1 10^3/uL (1.5-8.5); NEUTROPHILS % 69.1 % (36.0-66.0); PLATELET COUNT, AUTOMATED 150 10^3/uL (150-450); WHITE BLOOD COUNT 4.5 10^3/uL (4.0-10.0)
[2024-08-10 12:42] LABS: FREE T4 0.91 NG/DL (0.89-1.76); THYROID STIMULATING HORMONE 11.756 uIU/ML (0.55-4.78)
== END ==
LOC: M LAB REF 11:50
PROVIDERS: ATTEND Nurse Practitioner Family
DX: E66.3 Overweight (principal)

== ENCOUNTER 2024-08-13 23:22 | Emergency (ER) | payer MEDICARE, OTHER ==
[~2024-08-13] VITALS: Ht 162.6 cm; Wt 95.5 kg
[2024-08-14 00:14] LABS: LIPASE 42 U/L (12-53)
[2024-08-14 00:15] LABS: HCG, SERUM QUALITATIVE NEGATIVE (NEGATIVE)
[2024-08-14 00:16] LABS: ALBUMIN 4.3 G/DL (3.2-5.2); ALKALINE PHOSPHATASE 62 U/L (35-104); ALT/SGPT 45 U/L (7.0-40); AST/SGOT 36 U/L (<34); BILIRUBIN,DIRECT 0.1 MG/DL (<0.4); BILIRUBIN,TOTAL 0.5 MG/DL (0.3-1.2); BLOOD UREA NITROGEN 14 MG/DL (9-23); CALCIUM LEVEL 10.4 MG/DL (8.5-10.1); CARBON DIOXIDE LEVEL 24 MMOL/L (20-31); CHLORIDE LEVEL 107 MMOL/L (98-107); CREATININE FOR GFR 0.62 MG/DL (0.55-1.30); GLOMERULAR FILTRATION RATE > 60.0 (>60); GLUCOSE, FASTING 132 MG/DL (60-100); POTASSIUM SERUM 3.9 MMOL/L (3.5-5.1); SODIUM LEVEL 140 MMOL/L (136-145); TOTAL PROTEIN 7.3 G/DL (5.7-8.2)
[2024-08-14 00:19] LABS: BASO % 0.5 % (0.0-1.0); EOS # 0.1 10^3/uL (0.0-0.5); EOS % 1.3 % (0.0-3.0); HEMATOCRIT 38.7 % (36.0-47.0); HEMOGLOBIN 13.5 g/dl (12.0-15.5); LYMPH # 1.8 10^3/uL (1.5-5.0); LYMPH % 29.8 % (24.0-44.0); MEAN CORPUSCULAR HEMOGLOBIN 29.9 pg (27.0-33.0); MEAN CORPUSCULAR HGB CONC 34.9 g/dl (32.0-36.5); MEAN CORPUSCULAR VOLUME 85.6 fl (80.0-96.0); MONO # 0.3 10^3/uL (0.0-0.8); MONO % 4.9 % (2.0-8.0); NEUTROPHILS # 3.9 10^3/uL (1.5-8.5); PLATELET COUNT, AUTOMATED 193 10^3/uL (150-450); RED BLOOD COUNT 4.52 10^6/uL (4.00-5.40); WHITE BLOOD COUNT 6.2 10^3/uL (4.0-10.0)
[2024-08-14] MEDS: ONDANSETRON 4MG 2ML VIAL IV ONE (00:21)
[2024-08-14] MEDS ORDERED: ISOVUE-370 76% 100ML VIAL As Ordered ONE (01:02)
[2024-08-14] MEDS: NS 1,000 ML IV ONE (01:17)
[2024-08-14] MEDS: KETOROLAC 30 MG/ML 1ML VIAL IV ONE (01:17)
[2024-08-14 01:22] LABS: FREE T4 1.01 NG/DL (0.89-1.76)
[2024-08-14] MEDS ORDERED: ONDA-282 PO (03:22)
[2024-08-14] MEDS: ONDANSETRON 4MG ORAL DISINTEGRATING TAB PO ONE (04:03)
[2024-08-14] MEDS: traMADol 50 MG TAB (HOME DOSE PACK) PO ONE (04:04)
[2024-08-14 04:05] VITALS: BP 139/83; TEMP 97.5; O2SAT 95
== END 2024-08-14 04:32 | disposition home or self-care (01) ==
LOC: EDBD 23:22 → M ED 23:22
DX: K52.9 Noninfective gastroenteritis and colitis, unspecified (principal); E03.9 Hypothyroidism, unspecified; E55.9 Vitamin D deficiency, unspecified; K76.0 Fatty (change of) liver, not elsewhere classified
CPT/HCPCS: 74177; 80048; 80076; 81001; 83690; 83970; 84439; 84443; 84703; 85025; 87486; 87581; 87633; 87798; 96361; 96374; 96375; 99285; J1885; J2405; Q9967

== ENCOUNTER → 2024-08-16 | Outpatient (REF) | payer OTHER | LOC: M LAB REF 07:50 | PROVIDERS: ATTEND Emergency Medicine | DX: K52.9 Noninfective gastroenteritis and colitis, unspecified (principal) ==

== ENCOUNTER → 2024-08-24 | Outpatient (CLI) | payer MEDICARE, OTHER ==
[2024-08-24 12:27] LABS: THYROID STIMULATING HORMONE 10.005 uIU/ML (0.55-4.78)
[2024-08-24 12:28] LABS: FREE T4 1.04 NG/DL (0.89-1.76)
[2024-08-24 12:35] LABS: THYROID PEROXIDASE ANTIBODY > 1300.0 U/ML (<60.0)
[2024-08-25 15:47] LABS: THYROGLOBULIN QUANTITATIVE 0.1 ng/mL (2.8-40.9)
== END ==
LOC: M RAD 10:39
PROVIDERS: ATTEND Nurse Practitioner Family
DX: R89.1 Abnormal level of hormones in specimens from other organs, systems and tissues (principal)

== ENCOUNTER → 2024-10-30 | Outpatient (REF) | payer OTHER ==
[2024-10-30 13:44] LABS: BASO % 0.3 % (0.0-1.0); EOS # 0.1 10^3/uL (0.0-0.5); EOS % 1.5 % (0.0-3.0); HEMATOCRIT 42.2 % (36.0-47.0); HEMOGLOBIN 13.9 g/dl (12.0-15.5); LYMPH # 1.7 10^3/uL (1.5-5.0); LYMPH % 28.5 % (24.0-44.0); MEAN CORPUSCULAR HEMOGLOBIN 29.2 pg (27.0-33.0); MEAN CORPUSCULAR HGB CONC 32.9 g/dl (32.0-36.5); MEAN CORPUSCULAR VOLUME 88.7 fl (80.0-96.0); MONO # 0.3 10^3/uL (0.0-0.8); MONO % 5.2 % (2.0-8.0); NEUTROPHILS # 3.7 10^3/uL (1.5-8.5); NEUTROPHILS % 64.3 % (36.0-66.0); PLATELET COUNT, AUTOMATED 156 10^3/uL (150-450); RED BLOOD COUNT 4.76 10^6/uL (4.00-5.40); WHITE BLOOD COUNT 5.8 10^3/uL (4.0-10.0)
[2024-10-30 13:51] LABS: CHOLESTEROL LEVEL 213 MG/DL (<200); CHOLESTEROL RISK RATIO 6.37 (<5); FREE T4 1.04 NG/DL (0.89-1.76); HDL CHOLESTEROL 33.4 MG/DL (>40); LDL CHOLESTEROL 123.4 MG/DL (<100); NON-HDL-C 179.6 MG/DL; THYROID STIMULATING HORMONE 8.231 uIU/ML (0.55-4.78); TRIGLYCERIDES LEVEL 281 MG/DL (<150)
[2024-10-30 13:56] LABS: THYROGLOBULIN ANTIBODY > 500.0 U/ML (<60.0)
== END ==
LOC: M LAB REF 12:55
PROVIDERS: ATTEND Nurse Practitioner Family
DX: R89.1 Abnormal level of hormones in specimens from other organs, systems and tissues (principal); E03.9 Hypothyroidism, unspecified; E66.3 Overweight; R79.89 Other specified abnormal findings of blood chemistry

== ENCOUNTER → 2024-12-15 | Outpatient (CLI) | payer OTHER | LOC: M WHC 07:49 | PROVIDERS: ATTEND Nurse Practitioner Family | DX: R10.9 Unspecified abdominal pain (principal) ==

== ENCOUNTER 2024-12-29 05:48 | Emergency (ER) | payer OTHER ==
[~2024-12-29] VITALS: Ht 162.6 cm; Wt 93.8 kg
[2024-12-29] MEDS ORDERED: LEVO50TA5 (05:53)
[2024-12-29] MEDS: ONDANSETRON 4MG 2ML VIAL IV ONE (07:29)
[2024-12-29] MEDS: KETOROLAC 30 MG/ML 1ML VIAL IV ONE (07:30)
[2024-12-29] MEDS: METHOCARBAMOL 1,000 MG/10 ML VIAL IV ONE (07:30)
[2024-12-29] MEDS: ACETAMINOPHEN *IV* 1,000 MG in IV 1 EA IV ONE (08:34)
[2024-12-29] MEDS ORDERED: METH-1164 PO (09:48)
[2024-12-29] MEDS ORDERED: LIDO5DIS41 TOP (09:48)
[2024-12-29] MEDS ORDERED: ONDA-282 PO (09:48)
[2024-12-29 09:56] VITALS: BP 133/83; TEMP 98; O2SAT 97
== END 2024-12-29 10:01 | disposition home or self-care (01) ==
LOC: M ED 05:48
DX: M62.838 Other muscle spasm (principal); E06.3 Autoimmune thyroiditis; Z79.890 Hormone replacement therapy
CPT/HCPCS: 96374; 96375; 99284; J0131; J1885; J2405; J2800

== ENCOUNTER 2025-01-04 06:50 | Emergency (ER) | payer OTHER ==
[~2025-01-04] VITALS: Ht 162.6 cm; Wt 93.3 kg
[~2025-01-04 06:50] MED LIST changes: +LEVO50TA5; +LIDO5DIS41 TOP; +METH-1164 PO
[2025-01-04] MEDS: diazePAM 5MG TABLET PO ONE (08:20)
[2025-01-04] MEDS: ACETAMINOPHEN 500 MG TAB PO ONE (08:20)
[2025-01-04 08:27] LABS: BASO % 0.5 % (0.0-1.0); EOS # 0.1 10^3/uL (0.0-0.5); EOS % 1.2 % (0.0-3.0); HEMATOCRIT 38.7 % (36.0-47.0); HEMOGLOBIN 13.4 g/dl (12.0-15.5); LYMPH # 1.9 10^3/uL (1.5-5.0); LYMPH % 28.9 % (24.0-44.0); MEAN CORPUSCULAR HEMOGLOBIN 29.3 pg (27.0-33.0); MEAN CORPUSCULAR HGB CONC 34.6 g/dl (32.0-36.5); MEAN CORPUSCULAR VOLUME 84.7 fl (80.0-96.0); MONO # 0.3 10^3/uL (0.0-0.8); MONO % 5.2 % (2.0-8.0); NEUTROPHILS # 4.2 10^3/uL (1.5-8.5); NEUTROPHILS % 63.7 % (36.0-66.0); PLATELET COUNT, AUTOMATED 223 10^3/uL (150-450); RED BLOOD COUNT 4.57 10^6/uL (4.00-5.40); WHITE BLOOD COUNT 6.5 10^3/uL (4.0-10.0)
[2025-01-04 08:56] LABS: LIPASE 38 U/L (12-53)
[2025-01-04 08:58] LABS: ALBUMIN 4.1 G/DL (3.2-5.2); ALKALINE PHOSPHATASE 56 U/L (35-104); ALT/SGPT 24 U/L (7.0-40); AST/SGOT 37 U/L (<34); BILIRUBIN,DIRECT < 0.1 MG/DL (<0.4); BILIRUBIN,TOTAL 0.3 MG/DL (0.3-1.2); BLOOD UREA NITROGEN 14 MG/DL (9-23); CALCIUM LEVEL 9.3 MG/DL (8.5-10.1); CARBON DIOXIDE LEVEL 26 MMOL/L (20-31); CHLORIDE LEVEL 103 MMOL/L (98-107); CREATININE FOR GFR 0.48 MG/DL (0.55-1.30); GLOMERULAR FILTRATION RATE > 60.0 (>60); GLUCOSE, FASTING 116 MG/DL (60-100); POTASSIUM SERUM 4.6 MMOL/L (3.5-5.1); SODIUM LEVEL 140 MMOL/L (136-145); TOTAL PROTEIN 7.2 G/DL (5.7-8.2)
[2025-01-04] MEDS: LIDOCAINE 1% MDV 20ML VIAL SC ONE (10:08)
[2025-01-04 10:09] VITALS: BP 133/82; TEMP 98.2; O2SAT 97
== END 2025-01-04 10:11 | disposition home or self-care (01) ==
LOC: M ED 06:50
DX: M62.830 Muscle spasm of back (principal); E06.3 Autoimmune thyroiditis; Z79.899 Other long term (current) drug therapy

== ENCOUNTER → 2025-01-12 | Outpatient (REF) | payer OTHER ==
[2025-01-12 15:42] LABS: CHOLESTEROL RISK RATIO 5.62 (<5); HDL CHOLESTEROL 34.3 MG/DL (>40); LDL CHOLESTEROL 84.7 MG/DL (<100); NON-HDL-C 158.7 MG/DL; THYROID STIMULATING HORMONE 3.096 uIU/ML (0.55-4.78)
== END ==
LOC: M LAB REF 14:25
PROVIDERS: ATTEND Nurse Practitioner Family
DX: E03.9 Hypothyroidism, unspecified (principal); R79.89 Other specified abnormal findings of blood chemistry